=== PATIENT | female | born 1975 | race Caucasian/White ===

== ENCOUNTER 2023-11-13 08:22 | Emergency (ER) | payer OTHER, SELFPAY ==
[2023-11-13 08:32] VITALS: BP 174/121; PULSE 80; RESP 18; TEMP 36.4; O2SAT 99
[2023-11-13 08:40] VITALS: BP 174/121; PULSE 80; RESP 18; TEMP 36.4; O2SAT 99
[2023-11-13 08:51] LABS: Bilirubin Negative (Negative); Blood Trace-intact (Negative); Clarity Clear (Clear); Glucose Negative (Negative); Ketones Negative (Negative); Leukocyte Esterase Negative (Negative); Nitrite Negative (Negative); Specific Gravity 1.025 (1.005-1.025); Urobilinogen 0.2 mg/dL (Up to 0.2); pH 7.5 (5-8)
[2023-11-13] MEDS: Ketorolac 15 MG/ML VIAL 10 MG IVP (09:10)
[2023-11-13] MEDS: Ondansetron 4 MG/2 ML VIAL IVP (09:10)
[2023-11-13 09:18] LABS: WBC Negative HPF (0-5)
[2023-11-13 09:19] LABS: Bacteria Few HPF (Negative); C & S Indicated? No; Casts Negative LPF (Negative); Crystals Negative HPF (Negative); Epithelial Cells Rare HPF (Negative); Mucus Trace (Negative); Other Cells Negative (Negative)
[2023-11-13 09:31] LABS: Abs Immature Grans 0.04 10^3/uL (0.0-0.06); Absolute Eosinophil Count 0.01 10^3/uL (0.0-0.7); Absolute Lymphocyte Count 0.96 10^3/uL (1.2-3.4); Absolute Monocyte Count 0.26 10^3/uL (0.1-0.8); Basophils % 0.4 %; Eosinophils % 0.1 %; HCT 42.5 % (36.0-46.0); HGB 14.4 g/dL (11.2-15.7); Immature Grans % 0.4 %; Lymphocytes % 8.5 %; MCH 30.9 pg (27.0-33.0); MCHC 33.9 % (32.0-36.0); MCV 91 fL (80-95); MPV 10.3 fL (8.0-11.0); Monocytes % 2.3 %; Neutrophils % 88.3 %; Platelet Count 366 10^3/uL (130-400); RBC 4.66 10^6/uL (3.93-5.22); RDW 12.7 % (11.7-14.6); RDW-SD 42.9 fL; WBC 11.29 10^3/uL (4.4-10.8)
[2023-11-13 09:32] LABS: Absolute Basophil Count 0.05 10^3/uL (0.0-0.2); Absolute Neutrophil Count 9.97 10^3/uL (1.2-6.7)
[2023-11-13 09:46] LABS: Anion Gap 10.6 mmol/L (3-11); BUN 11 mg/dL (7-18); CO2 26.4 mmol/L (21.0-32.0); CREATININE 0.8 mg/dL (0.55-1.02); Calcium 9.6 mg/dL (8.5-10.1); Chloride 102 mmol/L (98-107); Estimated GFR 90.27 (mL/min/1.73m2); Glucose 100 mg/dL (74-106); Potassium 3.9 mmol/L (3.5-5.1); Sodium 139 mmol/L (136-145)
--- NOTE | 2023-11-13 09:52 | DI.CT_ITS ---
Exam(s) CT RENAL COLIC WO EXAM: CT RENAL COLIC WO CLINICAL HISTORY: flank pain.. TECHNIQUE: Imaging Protocol: Axial computed tomography images with coronal and sagittal reformatted images were created and reviewed CONTRAST MATERIAL: Intravenous: none Oral: None COMPARISON: No exams were available for comparison FINDINGS: VISUALIZED LUNG BASES: No nodules nor pleural effusions evident. ABDOMEN: There is no ascites. LIVER: There are no obvious focal hepatic lesions evident of this noninfused study. GALLBLADDER/BILIARY: No obvious gallbladder pathology. CBD is not dilated. PANCREAS: No evidence of pancreatic mass nor dilatation of the pancreatic duct. SPLEEN: Spleen is not enlarged. No obvious intrasplenic lesions. ADRENALS: There are no significant adrenal masses. KIDNEYS:Left kidney is unremarkable. There is a millimeter calculus at the midpole level of the rig ht kidney, nonobstructive. The ureters are not dilated. There are no calculi evident in the urinary bladder. However there is a 1 millimeter hyperdensity at the right UVJ which is possibly a tiny rec ently descended calculus at this level. ABDOMINAL AORTA: Abdominal aorta is not enlarged. LYMPH NODES: There is no retroperitoneal nor paraaortic adenopathy. ABDOMINAL WALL: No evidence of significant anterior abdominal wall nor inguinal hernia. GI: There is no evidence of bowel obstruction, free air, nor abscess. PELVIS: LYMPH NODES: There is no intrapelvic nor inguinal adenopathy. GI: No evidence of appendicitis.No evidence of sigmoid diverticular disease. URINARY BLADDER: As above. REPRODUCTIVE: Uterus surgically absent. No abnormal adnexal masses. No free fluid in the pelvis porfirio dent. OSSEOUS: No significant osseous lesions. No fractures. IMPRESSION: 1. There is a small 2-3 millimeter nonobstructive calculus in the right kidney and there is a tiny pu nctate probable calculus at the right ureterovesical junction. No hydronephrosis on either side. No calculi seen in the left kidney. No calculi seen in the urinary bladder. 2. No evidence of diverticulitis nor appendicitis. 3. Previous hysterectomy. No abnormal adnexal masses. Called by myself to ER physician RADIATION DOSE DELIVERED: Total DLP DATA REPOSITORY: All CT scans at this facility are submitted to the National Radiology Data Registry (NRDR) Dose Index Registry (DIR) with the [employer] ([employer]). RADIATION OPTIMIZATION: All CT scans at this facility use at least one of these dose optimization te chniques: automated exposure control; mA and/or kV adjustment per patient size (includes targeted exa ms where dose is matched to clinical indication); or iterative reconstruction.
[2023-11-13 10:38] VITALS: BP 147/97; PULSE 90; RESP 14; TEMP 36.9; O2SAT 97
[2023-11-13 10:43] VITALS: BP 147/97; PULSE 90; RESP 14; TEMP 36.9; O2SAT 97
--- NOTE | 2023-11-13 14:31 | ED.GENADUL_ITS ---
Discharge Plan Disposition Patient Disposition: Home Condition: Stable Discharge Details Clinical Impression: Left flank pain Primary Care Provider: None,None ED Provider: Tomer Rod Home Meds and New Rx's Prescriptions: New lidocaine [Lidoderm] 5 % adhesive patch,medicated 1 patch topical DAILY Qty: 15 0RF Rx Instructions: leave on most painful area for up to 12 hrs ondansetron 4 mg tablet,disintegrating 4 mg PO Q6H PRN (Reason: nausea and vomiting) Qty: 20 0RF meloxicam 7.5 mg tablet 7.5 mg PO DAILY Qty: 14 0RF Rx Instructions: do not take with other nsaids Discharge Instructions Instructions: Flank Pain ED Additional Instructions: * you have a very small stone on the right side, but none on the left * pain might be from sciatica or other muscle spasm * return with worsening symptoms, not tolerating liquids or other concerns HPI General Date/Time Provider Initiated Documentation: 11/13/23 08:33 . Limitations to Documentation: no limitations . Information obtained by: patient . HPI Narrative: 48y F with PMH of renal stone presents with acute onset of left flank pain. reports onset of pain at 2am. Pain localized to the left flank. Reports that it feels like prior episodes of kidney stones. Associated with vomiting. Denies any fever. She denies any hematuria or dysuria. She denies any trauma or recent injuries that may be contributing to the symptoms. She reports that she has previously had significant kidney stones. She states that she was scheduled for a stent, but she had the stones break up and did not require it. Related Data Home Medications ?Medication ?Instructions ?Recorded ?Confirmed lidocaine 5 % topical patch 1 patch topical DAILY #15 ea 11/13/23 (Lidoderm) meloxicam 7.5 mg tablet 7.5 mg PO DAILY #14 tabs 11/13/23 ondansetron 4 mg disintegrating 4 mg PO Q6H PRN nausea and 11/13/23 tablet vomiting #20 tabs Previous Rx's ?Medication ?Instructions ?Recorded lidocaine 5 % topical patch 1 patch topical DAILY #15 ea 11/13/23 (Lidoderm) meloxicam 7.5 mg tablet 7.5 mg PO DAILY #14 tabs 11/13/23 ondansetron 4 mg disintegrating 4 mg PO Q6H PRN nausea and 11/13/23 tablet vomiting #20 tabs Allergies Allergy/AdvReac Type Severity Reaction Status Date / Time shellfish derived Allergy Severe Swelling/Ed Verified 11/13/23 08:44 anali Sulfa (Sulfonamide Allergy Severe Swelling/Ed Verified 11/13/23 08:44 Antibiotics) anali General Stated Complaint: FlankPain RILEY: 3 Exam Narrative Exam Narrative: Review of Systems: All systems reviewed & are unremarkable except as noted in HPI and below Well-developed, appears uncomfortable NCAT PERRL, normal conjunctiva RRR no murmur Unlabored respiratory effort clear bilaterally Nondistended abdomen soft nontender, no CVA tenderness Extremities w/o deformity, no cyanosis, no edema No rashes or lesions. no focal neurologic deficits Appropriate mood and affect Course Vital Signs Vital signs: Vital Signs Temperature 36.4 C L 11/13/23 08:32 Pulse 80 11/13/23 08:32 Respiratory Rate 18 11/13/23 08:32 Blood Pressure 174/121 H 11/13/23 08:32 Pulse Oximetry 99 11/13/23 08:32 Temperature 36.9 C 11/13/23 10:43 Temperature Source Tympanic 11/13/23 10:38 Pulse 90 11/13/23 10:43 Respiratory Rate 14 11/13/23 10:43 Respiratory Effort Normal, Non-Labored 11/13/23 08:37 Blood Pressure 147/97 H 11/13/23 10:43 Blood Pressure Position Standing 11/13/23 08:40 Pulse Oximetry 97 11/13/23 10:43 Oxygen Delivery Method Room Air 11/13/23 10:38 Oxygen Flow Rate 0 11/13/23 10:38 Pain Level 5 11/13/23 10:43 Lab/Test Results Lab/Test Results: Laboratory Tests Range/Units 11/13/23 11/13/23 08:10 09:19 WBC (4.4-10.8) 10^3/uL 11.29 H RBC (3.93-5.22) 10^6/uL 4.66 Hgb (11.2-15.7) g/dL 14.4 Hct (36.0-46.0) % 42.5 MCV (80-95) fL 91 MCH (27.0-33.0) pg 30.9 MCHC (32.0-36.0) % 33.9 RDW (11.7-14.6) % 12.7 Plt Count (130-400) 10^3/uL 366 MPV (8.0-11.0) fL 10.3 Immature Gran % % 0.4 Neutrophils % % 88.3 Lymphocytes % % 8.5 Monocytes % % 2.3 Eosinophils % % 0.1 Basophils % % 0.4 Nucleated RBC % (0.0-0.3) % 0.0 Absolute Neutrophils (1.2-6.7) 10^3/uL 9.97 H Absolute Lymphocytes (1.2-3.4) 10^3/uL 0.96 L Absolute Monocytes (0.1-0.8) 10^3/uL 0.26 Absolute Eosinophils (0.0-0.7) 10^3/uL 0.01 Absolute Basophils (0.0-0.2) 10^3/uL 0.05 Sodium (136-145) mmol/L 139 Potassium (3.5-5.1) mmol/L 3.9 Chloride (98-107) mmol/L 102 Carbon Dioxide (21.0-32.0) mmol/L 26.4 Anion Gap (3-11) mmol/L 10.6 BUN (7-18) mg/dL 11 Creatinine (0.55-1.02) mg/dL 0.8 Est GFR (CKD-EPI 2020) (mL/min/1.73m2) 90.27 Glucose (74-106) mg/dL 100 Calcium (8.5-10.1) mg/dL 9.6 Urine Color (Yellow) Yellow Urine Clarity (Clear) Clear Urine pH (5-8) 7.5 Ur Specific [place] (1.005-1.025) 1.025 Urine Protein (Neg-Trace) mg/dL Negative Urine Ketones (Negative) mg/dL Negative Urine Blood (Negative) Trace-intact H Urine Nitrite (Negative) Negative Urine Bilirubin (Negative) Negative Urine Urobilinogen (Up to 0.2) mg/dL 0.2 Ur Leukocyte Esterase (Negative) Negative Urine RBC (0-2) HPF 3-5 H Urine WBC (0-5) HPF Negative Ur Epithelial Cells (Negative) HPF Rare Urine Crystals (Negative) HPF Negative Urine Bacteria (Negative) HPF Few Urine Casts (Negative) LPF Negative Urine Mucus (Negative) Trace Urine Other (Negative) Negative Ur Culture Indicated? No Urine Glucose (Negative) mg/dL Negative POC- Test(urine) Negative Medical Decision Making Emergent evaluation of left flank pain. Initial differential includes renal stone, UTI, pyelonephritis. Also could be musculoskeletal pain. Patient has a benign exam. She does appear uncomfortable. She does have history of renal stone. Lab work obtained, mild leukocytosis at 11 noted. She has no fever or other signs of infectious etiology. Her urinalysis is unremarkable except for some trace RBCs and blood. No signs of infection. Renal function is normal. She was resuscitated with IV fluids and given medication for nausea and pain. A CT scan was obtained. This demonstrates a small renal stone on the right, but nothing on the left. I spoke with the radiologist and there does not appear to be any etiology on the left that would contribute to her symptoms. This could be more musculoskeletal. Will treat with Robaxin and lidocaine. Recommend continued anti-inflammatory. Return precautions advised. Discharged in good condition. Medical Records Medical records reviewed: Yes I reviewed the patient's medical records. Lab Data Lab results reviewed: Yes I reviewed the patient's lab results. Quality:[facility] Health Related Social Needs: No Data to Display [facility] All Active Problems Left flank pain (Acute) Social History Smoking/Tobacco Use Status: Never Smoking risk assessment performed?: Yes Alcohol Intake: former Drug use: Daily Substance use type: marijuana Housing: house Do you feel safe at home: Yes Do you feel safe in your relationship?: Yes PAWSS Have you Been Recently Intoxicated or Drunk Within the Last 30 days?: No Have you Ever Experienced Previous Episodes of Alcohol Withdrawal?: No Have you ever Experienced Withdrawal Seizures?: No Have you ever Experienced Delirium Tremens(DT)s?: No Have you ever undergone Alcohol Rehabilitation Treatment (i.e, inpt ot outpatient treatment programs)?: No Have you ever Experienced Blackouts?: No Have you ever Combined Alcohol with other Downers within the last 90 days?: No Have you ever Combined Alcohol with any other Substance of Abuse during the last 90 days?: No Positive Blood Alcohol level on Presentation? [PCS.BAL]: No Evidence of Increased Autonomic Activity (i.e. HR>120, tremor, sweating, agitation, nausea)?: No Result: 0
== END 2023-11-13 10:43 | disposition home or self-care (01) ==
LOC: ER 11:39
PROVIDERS: Emergency Provider Emergency Medicine
DX: R10.9 Unspecified abdominal pain (principal); N20.0 Calculus of kidney; R11.0 Nausea
CPT/HCPCS: 36415; 80048; 81025; 96374; 96375; 99285; 74176; 81003; 81015; 85025; 99284; J1885; J2405

== ENCOUNTER 2024-04-15 09:30 | Outpatient (REF) | payer OTHER, SELFPAY ==
[2024-04-15 15:55] LABS: Abs Immature Grans 0.02 10^3/uL (0.0-0.06); Absolute Basophil Count 0.03 10^3/uL (0.0-0.2); Absolute Eosinophil Count 0.13 10^3/uL (0.0-0.7); Absolute Lymphocyte Count 1.54 10^3/uL (1.2-3.4); Absolute Monocyte Count 0.39 10^3/uL (0.1-0.8); Absolute Neutrophil Count 3.89 10^3/uL (1.2-6.7); Basophils % 0.5 %; Eosinophils % 2.2 %; HCT 42.7 % (36.0-46.0); HGB 13.7 g/dL (11.2-15.7); Immature Grans % 0.3 %; Lymphocytes % 25.7 %; MCH 30.5 pg (27.0-33.0); MCHC 32.1 % (32.0-36.0); MCV 95 fL (80-95); MPV 11.1 fL (8.0-11.0); Monocytes % 6.5 %; Neutrophils % 64.8 %; Platelet Count 374 10^3/uL (130-400); RBC 4.49 10^6/uL (3.93-5.22); RDW 12.6 % (11.7-14.6); RDW-SD 44.6 fL
[2024-04-15 17:00] LABS: Calculated LDL 150 mg/dL (<100); Cholesterol 234 mg/dL (<200); Ferritin 58 ng/mL (8-252); HDL Cholesterol 70 mg/dL (40-60); TSH (W/Ref FT4) 1.16 uIU/mL (0.36-3.74); Triglyceride 70 mg/dL (<150); Vitamin D 25 Total 22.5 ng/mL (30-100)
[2024-04-15 17:22] LABS: Hemoglobin A1C 5.9 % (<5.7)
[2024-04-15 17:24] LABS: Iron 64 ug/dL (50-170); Total Iron Binding Capacity 336 ug/dL (250-450); Transferrin Sat 19 % (15-50)
== END 2024-04-15 09:31 | disposition home or self-care (01) ==
LOC: NCHCN 09:30
PROVIDERS: PCP Nurse Practitioner Family; Visit Provider Nurse Practitioner Family
DX: E78.5 Hyperlipidemia, unspecified (principal); E55.9 Vitamin D deficiency, unspecified; Z83.3 Family history of diabetes mellitus
CPT/HCPCS: 80061; 82306; 82728; 83036; 83540; 83550; 84443; 85025